=== PATIENT | female | born 1965 | race Two or more races ===

== ENCOUNTER 2022-05-05 17:37 | Emergency (ER) | payer OTHER ==
[~2022-05-05] VITALS: Ht 152.4 cm; Wt 68.0 kg
[2022-05-05 18:23] VITALS: BP 136/65
[2022-05-05] MEDS ORDERED: KETOROLAC 30 MG/ML VIAL IM ONE (21:10)
[2022-05-05] MEDS ORDERED: LIDOCAINE 2% 1000 MG/50 ML VIAL INJ ONE (21:15)
--- NOTE | 2022-05-05 21:23 | NUR ---
PT TO BED 12
--- NOTE | 2022-05-05 21:30 | NUR ---
ASSUME CARE OF PT, PT PLACED IN GOWN, PT C/O LEFT KNEE SWELLING AND PAIN X 3 DAYS, PT STATES THIS HAS HAPPENED BEFORE SEVERAL YEARS AGO AND THEY TOOK FLUID OUT AND HELPED REDUCE PAIN, PT SETUP FOR LEFT KNEE ASPIRATION, CONSENT SIGNED BY DR DELGADO AND PT.
[2022-05-05] MEDS ORDERED: IBUP-2213 PO (22:19)
[2022-05-05 23:27] LABS: SPECIMENTYPE,BODY FLUID KNEE FLUID
[2022-05-05 23:28] LABS: APPEARANCE,SPUN,BODY FLUID CLEAR (CLEAR); APPEARANCE,UNSPUN,BODY FLUID HAZY (CLEAR); COLOR,BODY FLUID LT YELLOW (LT YELLOW); RBC, BODY FLUID 2 /cu. mm.; TOTAL VOLUME,BODY FLUID 10 mL; WBC, BODY FLUID 15 /cu. mm.
[2022-05-05 23:29] LABS: GLUCOSE,BODY FLUID 96 mg/dL; POLYNUCLEAR, BODY FLUID 98 %
[2022-05-05 23:52] VITALS: BP 136/70
== END 2022-05-05 23:52 | disposition home or self-care (01) ==
LOC: MED 17:37
DX: M25.462 Effusion, left knee (principal)
CPT/HCPCS: 36415; 73562; 82945; 84157; 87070; 87205; 89051; 96372; 99284; J1885; J2001